=== PATIENT | male | born 1980 | race Caucasian/White ===

== ENCOUNTER 2018-12-12 00:38 | Observation (INO) | payer SELFPAY ==
[2018-12-12] MEDS ORDERED: Adacel (T-DAP) 0.5 ML SYRINGE ONE (00:53)
[2018-12-12] MEDS ORDERED: Gentamicin 80 MG/2 ML VIAL ONE (02:17)
[2018-12-12] MEDS ORDERED: Clindamycin/D5W 600 mg/50 ml Premix Bag ONE (02:17)
[2018-12-12 02:20] LABS: #Basophils 0.1 thou/uL (0.0-0.2); #Eosinphils 0.5 thou/uL (0.0-0.7); #Lymphocytes 2.9 thou/uL (1.20-3.40); #Monocytes 0.8 thou/uL (0.11-0.59); #Neutrophils 5.5 thou/uL (1.40-6.50); %Basophils 0.6 % (0.0-1.0); %Lymphocytes 29.8 % (21.0-51.0); %Monocytes 7.8 % (0.0-10.0); %Neutrophils 56.7 % (42.0-75.0); Hemoglobin 14.6 g/dL (14.0-18.0); Mean Corpuscular HGB CONC 35.3 g/dL (32.0-36.0); Mean Corpuscular Hemoglobin 30.9 pg (27.0-31.0); Mean Corpuscular Volume 87.3 fL (78.0-98.0); Mean Platelet Volume 8.1 fL (7.4-10.4); Platelet Count 249 thou/uL (130-400); RBC Distribution Width 11.6 % (11.5-14.5); Red Blood Cell (RBC) Count 4.72 mill/uL (4.70-6.10); White Blood Cell (WBC) Count 9.7 thou/uL (4.8-10.8)
[2018-12-12] MEDS ORDERED: Gentamicin Sulfate 80 MG in Premix Bag 1 BAG IVPB SCH (02:30)
[2018-12-12 02:42] LABS: ALT (SGPT) 71 U/L (8-55); AST (SGOT) 36 U/L (5-34); Albumin 4.1 g/dL (3.5-5.0); Alkaline Phosphatase 155 U/L (40-150); Anion Gap 13 mmol/L (10-20); BUN (Urea Nitrogen) 26 mg/dL (8.9-20.6); Bilirubin, Total 0.3 mg/dL (0.2-1.2); Calc. Creatinine Clearance 0 mL/min (70-130); Calcium 9.6 mg/dL (7.8-10.44); Carbon Dioxide 26 mmol/L (22-29); Chloride 103 mmol/L (98-107); Estimated GFR-MDRD 83; Globulin 2.9 g/dL (2.4-3.5); Glucose 104 mg/dL (70-105); Potassium 3.8 mmol/L (3.5-5.1); Sodium 138 mmol/L (136-145)
[2018-12-12] MEDS ORDERED: Bacitracin Zinc 1 Packet ONE (02:51)
[2018-12-12 03:33] VITALS: BMI 24.0
[2018-12-12] MEDS ORDERED: Ondansetron PF 4 MG/2 ML Vial IVP PRN (04:30)
[2018-12-12] MEDS ORDERED: Ondansetron ODT 4 MG TAB SL PRN (04:30)
[2018-12-12] MEDS: Sodium Chloride 0.9% 1,000 ML IV SCH ×2 (05:13→16:40)
--- NOTE | 2018-12-12 08:23 | RAD ---
THREE VIEWS OF THE RIGHT THUMB: DATE: 12/12/2018. COMPARISON: None. HISTORY: Laceration. FINDINGS: There is soft tissue swelling along the palmar aspect of the thumb distally. There is no associated radiopaque foreign body. No displaced fracture or dislocation. IMPRESSION: Soft tissue swelling consistent with laceration. POS: [facility]
[2018-12-12 08:27] VITALS: TEMP 97.9
[2018-12-12] MEDS ORDERED: Sodium Chloride 0.9% 0 ML ONE (14:33)
[2018-12-12] MEDS ORDERED: Bacitracin Zinc Ointment 30 gm TUBE ONE (14:33)
[2018-12-12] MEDS ORDERED: Bupivacaine PF 0.5% 30 ML VIAL ONE (14:33)
[2018-12-12] MEDS ORDERED: Lidocaine 1% PF 5 ML VIAL ONE (15:30)
[2018-12-12] MEDS ORDERED: diphenhydrAMINE 50 MG/ML VIAL ONE (15:30)
[2018-12-12] MEDS ORDERED: PROPOFOL 200 MG/20 ML VIAL ONE (15:30)
[2018-12-12] MEDS ORDERED: Ondansetron PF 4 MG/2 ML Vial ONE (15:30)
[2018-12-12] MEDS ORDERED: Ondansetron HCl/PF 4 MG/2 ML Vial IVP PRN (17:16)
[2018-12-12] MEDS ORDERED: Promethazine HCl 25 MG/ML VIAL IM PRN (17:16)
[2018-12-12] MEDS ORDERED: Promethazine HCl 25 MG/ML VIAL SLOW IVP PRN (17:16)
[2018-12-12] MEDS ORDERED: Ketorolac Tromethamine 30 MG/ML VIAL ONE (17:40)
[2018-12-12 18:29] VITALS: BP 118/80
--- NOTE | 2018-12-14 14:20 | OP ---
DATE OF PROCEDURE: 12/12/2018 PREOPERATIVE DIAGNOSES: 1. Open fracture, distal phalanx. 2. Possible flexor tendon laceration. 3. Digital nerve laceration. FINDINGS: 1. Twp to three rami digital nerve lacerated ulnar side just distal to the palmar interphalangeal flexion crease. 2. Circulation intact. 3. Approximately 1/6th or 15% of the flexor tendon on the ulnar aspect was lacerated, underneath that there was compression fractured bone without instability. PROCEDURES PERFORMED: 1. Debridement of material associated with open fracture. 2. Repair of flexor tendon, flexor pollicis longus partial laceration. 3. Microscopic repair of digital nerve. 4. Debridement of wound. 5. Closure of wound 3 cm. 6. Application of short-arm splint, thumb spica. INDICATION: The patient tool injury approximately 12 hours prior to surgical intervention, radiographs did not show fracture as visualized . DESCRIPTION OF PROCEDURE: After successful general LMA technique and after 12 mL of 0.5% Marcaine, metacarpophalangeal block augmentation with Marcaine, the limb was prepped and draped. We then exsanguinated the limb, had time-out appropriately and inflated the tourniquet to 250 mmHg pressure. We extended this incision in a T-fashion with the transverse limb just proximal to the primary central sensory area of the thumb, palmar aspect 1.5 cm distal, 2 cm proximal to expose neurovascular bundle and found that the patient had space central that rami was intact, but the 2 more distal were not. Then, we saw the compression fracture of the bone, but it was through a 3 cm flexor laceration with remainder of the FPL tendon intact. We then debrided this area using curette, tenotomy scissors, [place], excision technique, use of Pulsavac, where there was no evidence of infection or gross purulence. We then repaired this in approximately 10 degrees of flexion with [id number] interrupted Prolene 4-0 sutures. Then we turned our attention to the distal nerves, brought microscope into the field, neuroplasty reveals that the both palmar and central rami were still intact and the target point of the skin itself, the other two were lacerated, so we trimmed the edges gently, identified them from a vascular basis, then repaired it using interrupted 10-0 nylon for the nerve repair. The 4-0 Prolene was used to repair the flexor tendon, which gave a 10-degree flexion at . Finally, we deflated the tourniquet, obtained hemostasis closed the wound with excellent hemostasis, tourniquet inflation of 63 minutes using 4-0 Monocryl in a running fashion. Job ID: [id number]
== END 2018-12-12 19:00 | disposition home or self-care (01) ==
LOC: ERS 00:38 → SURG B 03:19
PROVIDERS: ADMIT Orthopaedic Surgery Hand Surgery; ATTEND Orthopaedic Surgery Hand Surgery
PROC: 0LQ70ZZ Repair Right Hand Tendon, Open Approach (ICD-10-PCS; principal; 2018-12-12)
PROC: 0JDJ0ZZ Extraction of Right Hand Subcutaneous Tissue and Fascia, Open Approach (ICD-10-PCS; 2018-12-12)
DX: S62.521B Displaced fracture of distal phalanx of right thumb, initial encounter for open fracture (principal); S64.31XA Injury of digital nerve of right thumb, initial encounter; F17.200 Nicotine dependence, unspecified, uncomplicated; Z88.5 Allergy status to narcotic agent; Z91.041 Radiographic dye allergy status; Z88.0 Allergy status to penicillin; Z79.899 Other long term (current) drug therapy
CPT/HCPCS: 80053; 85025; 86850; 86900; 86901; 90471; 90715; 93005; 96365; 96368; G0378; J1200; J1580; J1885; J2001; J2405; J2704; J3490; S0020